=== PATIENT | male | born 1955 | race Two or more races ===

== ENCOUNTER 2018-09-16 09:18 | Emergency (ER) | payer OTHER, BC | END 2018-09-16 11:12 | disposition home or self-care (01) | LOC: FTE 09:18 | DX: B02.9 Zoster without complications (principal); F17.210 Nicotine dependence, cigarettes, uncomplicated; I10 Essential (primary) hypertension; Z79.82 Long term (current) use of aspirin | CPT/HCPCS: 99283; Z7502 ==

== ENCOUNTER 2018-09-17 19:10 | Emergency (ER) | payer OTHER | END 2018-09-17 20:00 | disposition home or self-care (01) | LOC: FTE 19:10 | DX: B02.9 Zoster without complications (principal); I10 Essential (primary) hypertension; Z79.82 Long term (current) use of aspirin | CPT/HCPCS: 99282; Z7502 ==